=== PATIENT | female | born 1965 | race Caucasian/White ===

== ENCOUNTER 2023-03-26 06:25 | Emergency (ER) | payer OTHER ==
[~2023-03-26] VITALS: Ht 170.2 cm; Wt 74.8 kg
[2023-03-26] MEDS ORDERED: KETOROLAC TROMETHAMINE 15 MG/ML VIAL IM ONE (07:30)
[2023-03-26] MEDS ORDERED: CYCLOBENZAPRINE 10 MG TABLET PO ONE (07:30)
[2023-03-26] MEDS ORDERED: CYCLOBENZAPRINE 10 MG TABLET ONE (07:32)
[2023-03-26] MEDS ORDERED: KETOROLAC TROMETHAMINE 15 MG/ML VIAL ONE (07:32)
[2023-03-26] MEDS ORDERED: LIDO30AD10 TP (08:37)
[2023-03-26] MEDS ORDERED: CYCL5TAB PO (08:37)
[2023-03-26] MEDS ORDERED: NAPR-1164 PO (08:37)
[2023-03-26 09:17] VITALS: BP 130/65; TEMP 98.4; O2SAT 97
== END 2023-03-26 09:18 | disposition home or self-care (01) ==
LOC: EDUNIT# 06:25 → ER 06:51
DX: S79.811A Other specified injuries of right hip, initial encounter (principal); F41.9 Anxiety disorder, unspecified; F32.A Depression, unspecified; W19.XXXA Unspecified fall, initial encounter; Y93.89 Activity, other specified; Y92.89 Other specified places as the place of occurrence of the external cause; Y99.8 Other external cause status
CPT/HCPCS: 99283; 96372; 73502; J1885